=== PATIENT | female | born 1940 | race Asian ===

== ENCOUNTER 2018-01-25 07:08 | Emergency (ER) | payer MEDICARE ==
[~2018-01-25] VITALS: Ht 162.6 cm; Wt 131.8 kg
[2018-01-25 08:14] LABS: BASOPHILS # (AUTO) 0.05 x10^3/uL (0-0.1); BASOPHILS % (AUTO) 1 % (0-1); EOSINOPHILS # (AUTO) 0.23 x10^3/uL (0-0.4); EOSINOPHILS % (AUTO) 3 % (1-7); LYMPHOCYTES # (AUTO) 1.53 x10^3/uL (1-3.4); LYMPHOCYTES % (AUTO) 19 % (22-44); MD NO; MEAN CORPUSCULAR HEMOGLOBIN 31.7 pg (27.0-34.8); MEAN CORPUSCULAR HGB CONC 33.2 g/dL (32.4-35.8); MEAN CORPUSCULAR VOLUME 95.5 fL (80-100); MEAN PLATELET VOLUME 8.8 fL (7.4-10.4); MONOCYTES # (AUTO) 0.54 x10^3/uL (0.2-0.8); MONOCYTES % (AUTO) 7 % (2-9); NEUTROPHILS # (AUTO) 5.85 x10^3/uL (1.8-6.8); NEUTROPHILS % (AUTO) 71 % (42-75); PLATELET COUNT 232 x10^3/uL (130-400); RED BLOOD COUNT 4.09 x10^6/uL (3.82-5.3); RED CELL DISTRIBUTION WIDTH 15.6 % (9.6-15.2)
[2018-01-25 08:25] LABS: ALANINE AMINOTRANSFERASE 30 U/L (12-78); ANION GAP 8 mmol/L (5-15); CALCIUM 9.1 mg/dL (8.5-10.1); CHLORIDE 108 mmol/L (98-107)
[2018-01-25 08:29] LABS: ALKALINE PHOSPHATASE 110 U/L (45-117); BILIRUBIN,TOTAL 0.6 mg/dL (0.2-1.0); TOTAL PROTEIN 7.4 g/dL (6.4-8.2); TROPONIN I < 0.015 ng/mL (0.000-0.045)
[2018-01-25 08:51] LABS: MICROSCOPIC NOT IND
[2018-01-25 08:53] LABS: CULTURE INDICATED? NO
[2018-01-25] MEDS ORDERED: ATEN-104 PO (09:19)
[2018-01-25] MEDS ORDERED: ATOR-2 PO (09:19)
[2018-01-25] MEDS ORDERED: LEVO100T5 PO (09:23)
[2018-01-25] MEDS ORDERED: HYDR12.53 PO (09:23)
[2018-01-25] MEDS ORDERED: ALLO300T PO (09:23)
[2018-01-25] MEDS ORDERED: INDO25OR PO (09:23)
[2018-01-25] MEDS ORDERED: CLOP75TA52 PO (09:23)
[2018-01-25] MEDS ORDERED: IRBE75TA10 PO (09:23)
[2018-01-25 10:06] VITALS: BP 152/88
[2018-01-26] MEDS ORDERED: CEPH-368 PO (02:20)
== END 2018-01-25 10:08 | disposition home or self-care (01) ==
LOC: ED 08:37
DX: I50.9 Heart failure, unspecified (principal); Z88.8 Allergy status to other drugs, medicaments and biological substances; I11.0 Hypertensive heart disease with heart failure; Z88.2 Allergy status to sulfonamides; Z79.899 Other long term (current) drug therapy; E78.5 Hyperlipidemia, unspecified
CPT/HCPCS: 36415; 71046; 80053; 81003; 83880; 84484; 85025; 93005; 99285

== ENCOUNTER 2018-01-25 21:47 | Inpatient (IN) | payer MEDICARE ==
[~2018-01-25] VITALS: Ht 162.6 cm; Wt 133.3 kg
[~2018-01-25 21:47] MED LIST: ALLO300T PO; ATEN-104 PO; ATOR-2 PO; CLOP75TA52 PO; HYDR12.53 PO; INDO25OR PO; IRBE75TA10 PO; LEVO100T5 PO
[2018-01-25 22:58] LABS: BASOPHILS # (AUTO) 0.04 x10^3/uL (0-0.1); BASOPHILS % (AUTO) 0 % (0-1); EOSINOPHILS # (AUTO) 0.14 x10^3/uL (0-0.4); EOSINOPHILS % (AUTO) 1 % (1-7); LYMPHOCYTES # (AUTO) 1.65 x10^3/uL (1-3.4); LYMPHOCYTES % (AUTO) 15 % (22-44); MD NO; MEAN CORPUSCULAR HEMOGLOBIN 31.6 pg (27.0-34.8); MEAN CORPUSCULAR HGB CONC 33.5 g/dL (32.4-35.8); MEAN CORPUSCULAR VOLUME 94.5 fL (80-100); MEAN PLATELET VOLUME 8.9 fL (7.4-10.4); MONOCYTES # (AUTO) 0.73 x10^3/uL (0.2-0.8); MONOCYTES % (AUTO) 7 % (2-9); NEUTROPHILS # (AUTO) 8.19 x10^3/uL (1.8-6.8); NEUTROPHILS % (AUTO) 76 % (42-75); PLATELET COUNT 253 x10^3/uL (130-400); RED BLOOD COUNT 4.31 x10^6/uL (3.82-5.3); RED CELL DISTRIBUTION WIDTH 15.5 % (9.6-15.2)
[2018-01-25] MEDS ORDERED: OMNIPAQUE 350 MG/ML, 100ML BOTTLE ONE (23:00)
[2018-01-25 23:08] LABS: ALBUMIN 3.2 g/dL (3.4-5.0); ANION GAP 9 mmol/L (5-15); CALCIUM 9.4 mg/dL (8.5-10.1); CHLORIDE 106 mmol/L (98-107); CREATININE 0.84 mg/dL (0.55-1.02)
[2018-01-25 23:13] LABS: TROPONIN I < 0.015 ng/mL (0.000-0.045)
[2018-01-26] MEDS ORDERED: ONDANSETRON 2MG/ML, 2ML IVPush PRN ×2 (01:00→03:00)
[2018-01-26] MEDS ORDERED: CEPH-368 PO (02:20)
[2018-01-26 02:22] VITALS: BP 137/74
[2018-01-26] MEDS ORDERED: SODIUM CHLORIDE 0.9% 1,000 ML IV SCH (02:48)
[2018-01-26] MEDS ORDERED: hydrALAzine 20 MG/ML, 1ML IVPush PRN (03:00)
[2018-01-26] MEDS ORDERED: ONDANSETRON ODT 4 MG PO PRN (03:00)
[2018-01-26] MEDS ORDERED: POLYETHYLENE GLYCOL 17 GM PACKET PO PRN (03:00)
[2018-01-26] MEDS: LEVOTHYROXINE 100 MCG TABLET PO SCH (06:03)
[2018-01-26 06:14] LABS: CHOL/HDL RATIO 2.5; CHOLESTEROL, TOTAL 119 mg/dL (140-239); HDL CHOL % 39 % (28-40); HDL CHOLESTEROL (DIRECT) 47 mg/dL (40-60); LDL CHOLESTEROL,CALCULATED 52 mg/dL (54-169); LDL/HDL RATIO 1.1 (0.5-3.0); TRIGLYCERIDES 102 mg/dL (50-200); TROPONIN I < 0.015 ng/mL (0.000-0.045); VLDL CHOLESTEROL 20 mg/dL (0-25)
[2018-01-26 07:39] VITALS: BP 141/79
[2018-01-26] MEDS: IRBESARTAN 150 MG TABLET PO SCH (09:37)
[2018-01-26] MEDS: CLOPIDOGREL 75 MG TABLET PO SCH (09:38)
[2018-01-26] MEDS: ATENOLOL 50 MG TABLET PO SCH (09:38)
[2018-01-26] MEDS: ALLOPURINOL 300 MG TABLET PO SCH (09:38)
[2018-01-26] MEDS: HYDROCHLOROTHIAZIDE 12.5 MG CAPSULE PO SCH (09:39)
[2018-01-26] MEDS: CEPHALEXIN 500 MG CAPSULE PO SCH ×3 (09:40→21:54)
[2018-01-26 12:07] VITALS: BP 114/71
[2018-01-26 19:39] VITALS: BP 145/88
[2018-01-26] MEDS ORDERED: ATORVASTATIN 10 MG TABLET PO SCH (21:00)
[2018-01-26] MEDS ORDERED: MAGNESIUM SULFATE PMX 2GM/50ML 50 ML IV ONE (23:00)
[2018-01-26] MEDS ORDERED: CALCIUM CARBONATE 500 MG TAB.CHEW PO ONE (23:30)
[2018-01-27 00:10] VITALS: BP 103/56
[2018-01-27] MEDS: LEVOTHYROXINE 100 MCG TABLET PO SCH (06:06)
[2018-01-27 07:03] VITALS: BP 134/79
[2018-01-27] MEDS: CEPHALEXIN 500 MG CAPSULE PO SCH (07:37)
[2018-01-27] MEDS: ATENOLOL 50 MG TABLET PO SCH (07:37)
[2018-01-27] MEDS: CLOPIDOGREL 75 MG TABLET PO SCH (07:37)
[2018-01-27] MEDS: ALLOPURINOL 300 MG TABLET PO SCH (07:37)
[2018-01-27] MEDS: HYDROCHLOROTHIAZIDE 12.5 MG CAPSULE PO SCH (07:38)
[2018-01-27] MEDS: IRBESARTAN 150 MG TABLET PO SCH (07:38)
[2018-01-27] MEDS ORDERED: METOPROLOL SUCCINATE 100 MG TAB.ER.24H PO SCH (08:30)
[2018-01-27] MEDS ORDERED: MAGN400T26 PO (08:49)
[2018-01-27] MEDS ORDERED: METO25TA91 PO (08:49)
== END 2018-01-27 11:35 | disposition home or self-care (01) | DRG 309 ==
LOC: ED 23:31 → EDIP 01-26 00:48 → 5SO 01-26 02:17 → DCLOUNGE 01-27 11:20
PROVIDERS: ADMIT Hospitalist; ATTEND Hospitalist
PROC: 5A09357 Assistance with Respiratory Ventilation, Less than 24 Consecutive Hours, Continuous Positive Airway Pressure (ICD-10-PCS; principal; 2018-01-27)
DX: I49.3 Ventricular premature depolarization (principal); E44.0 Moderate protein-calorie malnutrition; Z68.43 Body mass index [BMI] 50.0-59.9, adult; E03.9 Hypothyroidism, unspecified; E66.9 Obesity, unspecified; E78.5 Hyperlipidemia, unspecified; G47.33 Obstructive sleep apnea (adult) (pediatric); I11.0 Hypertensive heart disease with heart failure; I25.10 Atherosclerotic heart disease of native coronary artery without angina pectoris; I50.9 Heart failure, unspecified; Z96.653 Presence of artificial knee joint, bilateral; M10.9 Gout, unspecified; Z88.8 Allergy status to other drugs, medicaments and biological substances; Z88.2 Allergy status to sulfonamides; Z88.1 Allergy status to other antibiotic agents; Z90.710 Acquired absence of both cervix and uterus; I25.2 Old myocardial infarction; Z95.5 Presence of coronary angioplasty implant and graft; Z79.899 Other long term (current) drug therapy; R06.00 Dyspnea, unspecified
CPT/HCPCS: 36415; 71045; 71275; 80048; 80061; 82040; 83735; 84443; 84484; 85025; 93005; 99285; Q9967; J3475; J7030